=== PATIENT | male | born 2000 | race Two or more races ===

== ENCOUNTER 2022-10-31 14:37 | Emergency (ER) | payer SELFPAY ==
[~2022-10-31] VITALS: Ht 180.3 cm; Wt 79.8 kg
[2022-10-31 14:37] VITALS: BP 147/81
== END 2022-10-31 18:46 | disposition left against medical advice (07) ==
LOC: M ED 14:37
DX: Z53.21 Procedure and treatment not carried out due to patient leaving prior to being seen by health care provider (principal)

== ENCOUNTER 2022-11-01 09:08 | Emergency (ER) | payer OTHER, SELFPAY ==
[~2022-11-01] VITALS: Ht 180.3 cm; Wt 77.0 kg
[2022-11-01 10:34] LABS: RSV AMPLIFICATION NEGATIVE (NEGATIVE)
[2022-11-01 14:24] VITALS: BP 137/74
== END 2022-11-01 14:28 | disposition home or self-care (01) ==
LOC: M ED 09:08
DX: U07.1 COVID-19 (principal); Z20.89 Contact with and (suspected) exposure to other communicable diseases; Z87.01 Personal history of pneumonia (recurrent); Z87.891 Personal history of nicotine dependence

== ENCOUNTER 2023-02-27 12:46 | Inpatient (IN) | payer OTHER ==
[~2023-02-27] VITALS: Ht 180.3 cm; Wt 77.7 kg
[2023-02-27 14:43] LABS: HEMATOCRIT 45.5 % (42.0-52.0); HEMOGLOBIN 14.9 g/dl (13.5-17.5); MEAN CORPUSCULAR HEMOGLOBIN 30.1 pg (27.0-33.0); MEAN CORPUSCULAR HGB CONC 32.7 g/dl (32.0-36.5); MEAN CORPUSCULAR VOLUME 91.9 fl (80.0-96.0); PLATELET COUNT, AUTOMATED 302 10^3/uL (150-450); RED BLOOD COUNT 4.95 10^6/uL (4.30-6.10); WHITE BLOOD COUNT 5.4 10^3/uL (4.0-10.0)
[2023-02-27 15:07] LABS: AMPHETAMINES LEVEL URINE NEGATIVE (NEGATIVE); BARBITURATES URINE NEGATIVE (NEGATIVE); BENZODIAZEPINES URINE NEGATIVE (NEGATIVE); COCAINE METABOLITE URINE NEGATIVE (NEGATIVE); METHADONE URINE NEGATIVE (NEGATIVE); OPIATES URINE NEGATIVE (NEGATIVE)
[2023-02-27 15:08] LABS: PHENCYCLIDINE URINE NEGATIVE (NEGATIVE)
[2023-02-27 15:10] LABS: CANNABINOIDS URINE POSITIVE (NEGATIVE)
[2023-02-27 15:11] LABS: SALICYLATE LEVEL < 3.0 MG/DL (<30)
[2023-02-27 15:12] LABS: ALBUMIN 4.5 G/DL (3.2-5.2); ALKALINE PHOSPHATASE 75 U/L (46-116); ALT/SGPT 156 U/L (7.0-40); AST/SGOT 349 U/L (<34); BILIRUBIN,DIRECT 0.4 MG/DL (<0.4); BILIRUBIN,TOTAL 1.1 MG/DL (0.3-1.2); BLOOD UREA NITROGEN 10 MG/DL (9-23); CALCIUM LEVEL 9.8 MG/DL (8.5-10.1); CARBON DIOXIDE LEVEL 29 MMOL/L (20-31); CHLORIDE LEVEL 103 MMOL/L (98-107); CREATININE FOR GFR 1.01 MG/DL (0.70-1.30); GLOMERULAR FILTRATION RATE > 60.0 (>60); GLUCOSE, FASTING 85 MG/DL (60-100); POTASSIUM SERUM 4.2 MMOL/L (3.5-5.1); SODIUM LEVEL 138 MMOL/L (136-145)
[2023-02-27 15:14] LABS: THYROID STIMULATING HORMONE 2.168 uIU/ML (0.55-4.78)
[2023-02-27 15:21] LABS: ETHYL ALCOHOL (ETHANOL) < 0.003 % (0.000-0.010)
[2023-02-27 15:28] LABS: ACETAMINOPHEN LEVEL < 2.0 UG/ML (10.0-20.0)
[2023-02-27] MEDS ORDERED: MOM 30ML SUSPENSION UDC PO PRN (15:35)
[2023-02-27] MEDS ORDERED: IBUPROFEN 400MG TAB PO PRN (15:35)
[2023-02-27] MEDS ORDERED: ACETAMINOPHEN TAB 650MG DOSE (2X325MG) PO PRN (15:35)
[2023-02-27] MEDS ORDERED: MAALOX 30 ML SUSP *UDC PO PRN (15:35)
[2023-02-27 16:57] VITALS: BP 134/93
[2023-02-27] MEDS ORDERED: HOME MED LIST COMPLETE! XX SCH (17:30)
[2023-02-27] MEDS: NICOTINE 21MG/24HR 1 EA TRANSDERMAL TD SCH (17:51)
[2023-02-28 06:00] VITALS: BP 141/65
[2023-02-28] MEDS: NICOTINE 21MG/24HR 1 EA TRANSDERMAL TD SCH (08:11)
[2023-02-28 11:49] LABS: HEPATITIS B SURFACE ANTIGEN NEGATIVE (NEGATIVE)
[2023-02-28 12:11] LABS: HEPATITIS B CORE ANTIBODY IGM NEGATIVE (NEGATIVE)
[2023-02-28] MEDS: busPIRone 5 MG TAB PO PRN (14:47)
[2023-02-28] MEDS: diphenhydrAMINE 25MG CAP PO PRN (16:00)
[2023-02-28 18:15] VITALS: BP 140/80
[2023-02-28] MEDS: traZODone 50 MG TAB PO PRN (23:02)
[2023-03-01 07:08] VITALS: BP 139/74
[2023-03-01] MEDS: busPIRone 5 MG TAB PO PRN ×2 (08:12→22:10)
[2023-03-01] MEDS: NICOTINE 21MG/24HR 1 EA TRANSDERMAL TD SCH (08:16)
[2023-03-01] MEDS ORDERED: BUSP5TA PO (10:12)
[2023-03-01] MEDS ORDERED: NICO21PAT TD (10:12)
[2023-03-01] MEDS: diphenhydrAMINE 25MG CAP PO PRN ×2 (16:00→22:07)
[2023-03-01 18:19] VITALS: BP 140/78
[2023-03-01] MEDS: traZODone 50 MG TAB PO PRN (22:10)
[2023-03-02] MEDS: NICOTINE 21MG/24HR 1 EA TRANSDERMAL TD SCH (09:00)
[2023-03-02] MEDS: busPIRone 5 MG TAB PO PRN (09:41)
== END 2023-03-02 09:49 | disposition home or self-care (01) | DRG 882 ==
LOC: M ED 12:46 → M ED INP 15:35 → M PSY 16:55
PROVIDERS: ADMIT Psychiatry & Neurology Psychiatry; ATTEND Psychiatry & Neurology Psychiatry
DX: F43.22 Adjustment disorder with anxiety (principal); R45.851 Suicidal ideations; F10.188 Alcohol abuse with other alcohol-induced disorder; F17.290 Nicotine dependence, other tobacco product, uncomplicated; Z56.6 Other physical and mental strain related to work; R74.01 Elevation of levels of liver transaminase levels; I10 Essential (primary) hypertension; G47.53 Recurrent isolated sleep paralysis; Z86.16 Personal history of COVID-19